=== PATIENT | male | born 1985 | race Caucasian/White ===

== ENCOUNTER 2022-02-26 20:42 | Emergency (ER) | payer BC, OTHER ==
[~2022-02-26] VITALS: Ht 180.3 cm; Wt 83.9 kg
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
--- NOTE | 2022-02-26 21:46 | NUR ---
Dr. Macdonald at bedside for MSE.
[2022-02-26] MEDS ORDERED: BACITRACIN ZINC OINT 15 GM TUBE ONE (21:52)
[2022-02-26] MEDS ORDERED: BACITRACIN ZINC OINT 15 GM TUBE TOP ONE (22:00)
--- NOTE | 2022-02-26 23:49 | NUR ---
Dr. Macdonald reviewed discharge instructions with the pt, pt's pinky finger on left hand was michelle taped per MD instructions. Pt and his states they cannot wait and longer for discharge. They are aware of follow up they left the ER.
[2022-02-26 23:53] VITALS: BP 130/80
== END 2022-02-26 23:54 | disposition home or self-care (01) ==
LOC: ER 20:48
DX: S62.617A Displaced fracture of proximal phalanx of left little finger, initial encounter for closed fracture (principal); S80.212A Abrasion, left knee, initial encounter; S60.419A Abrasion of unspecified finger, initial encounter; S00.83XA Contusion of other part of head, initial encounter; V28.4XXA Motorcycle driver injured in noncollision transport accident in traffic accident, initial encounter; Y92.410 Unspecified street and highway as the place of occurrence of the external cause
CPT/HCPCS: 73130; A4663